=== PATIENT | female | born 2000 ===

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

== ENCOUNTER → 2023-05-07 | Outpatient (CLI) | payer OTHER | LOC: LAB SHORT 12:01 → LAB 12:01 | DX: R30.0 Dysuria (principal) | CPT/HCPCS: 87086 ==

== ENCOUNTER → 2023-06-01 | Outpatient (CLI) | payer OTHER | LOC: LAB 12:52 → LAB SHORT 12:52 | DX: Z34.02 Encounter for supervision of normal first pregnancy, second trimester (principal) | CPT/HCPCS: 87086 ==